=== PATIENT | male | born 1965 | race American Indian/Alaskan Native ===

== ENCOUNTER 2016-08-12 22:30 | Emergency (ER) | payer OTHER ==
--- NOTE | 2016-08-13 03:23 | Cat Scan Report ---
FINAL REPORT PROCEDURE: CT FACIAL BONES WO CON TECHNIQUE: Computerized tomography of the facial bones and soft tissues with axial and coronal sections performed from the cranial aspect of the frontal sinuses to the caudal portion of the mandible without contrast material. HISTORY: Swollen Right Nare/nose COMPARISON: No prior studies are available for comparison. FINDINGS: There is a expansile soft tissue mass identified in the nasal cavity involving the mid nasal cavity extending anteriorly into the right nares region. This mass measures 6.1 x 4.1 by 3.6 centimeters. There is some peripheral calcification within the superior posterior and inferior ortez of this mass. The mass pushes the nasal septum laterally to the left. The mass extends into upper soft palate region. The differential will be extensive and will include benign and malignant entities. Further differentiation with advanced imaging including MRI and contrast-enhanced study would be appropriate. Eventual tissue diagnosis is recommended. There is mild opacification of the right lower maxillary sinus and the ethmoid sinuses. The optic globes, optic nerves and extraocular muscles are intact. There is no evidence of an acute fracture of the facial bones. IMPRESSION: There is an expansile soft tissue mass identified in the nasal cavity involving the mid nasal cavity extending anteriorly into the right nares region. This measures up to 6.1 centimeters. Further evaluation of this region utilizing advanced imaging including contrast-enhanced study and possible MRI would be appropriate. Appropriate consultation with eventual tissue diagnosis is recommended. The differential is extensive and includes benign and malignant entities. The findings were discussed with the patient's ER physician at the time of dictation 02:18 central standard time on 08/13/2016
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
[2016-08-13 05:22] VITALS: BP 150/99
== END 2016-08-13 04:20 | disposition home or self-care (01) ==
LOC: ED 22:30
DX: J34.89 Other specified disorders of nose and nasal sinuses (principal)
CPT/HCPCS: 70486; 99283